=== PATIENT | male | born 1975 | race Caucasian/White ===

== ENCOUNTER 2016-07-15 12:58 | Emergency (ER) | payer MEDICAID ==
[~2016-07-15] VITALS: Ht 165.1 cm; Wt 72.0 kg
[2016-07-15 13:36] VITALS: Ht 165.1 cm; Wt 72.0 kg
--- NOTE | 2016-07-15 14:52 | ERD ---
ER Documentation Chief Complaint Date/Time DATE: 07/15/16 TIME: 14:50 Chief Complaint Pt here for suture removal from forehead LAC. HPI Patient is a 41-year-old male who presents to the ED for suture removal to his left forehead. He states that he has had the sutures in for 14 days. He denies any fever or chills. Denies any pain, bleeding or drainage at the site. He states that he is not on any medications right now. He denies any other symptoms. ROS All systems reviewed and are negative except as per history of present illness. PMhx/Soc History of Surgery: No Anesthesia Reaction: No Hx Neurological Disorder: No Hx Respiratory Disorders: No Hx Cardiac Disorders: No Hx Psychiatric Problems: No Hx Miscellaneous Medical Probl: No Hx Alcohol Use: No Hx Substance Use: No Hx Tobacco Use: No Smoking Status: Never smoker FmHx Family History: No coronary disease, No diabetes, No other Physical Exam Vitals Vital Signs Date Time Temp Pulse Resp B/P Pulse Ox O2 Delivery O2 Flow Rate FiO2 07/15/16 13:36 98.3 79 18 134/83 100 Physical Exam GENERAL: Well-developed, well-nourished male. Appears in no acute distress. HEAD: Normocephalic, atraumatic. 6 cm healing laceration to left side of forehead. no drainage, erythema, warmth or pain. no signs of infection. 8 sutures present. no tenderness. SKIN: Normal color. Warm and dry. No rashes or lesions. Capillary refill < 2 seconds Procedures/MDM ER COURSE: I kept the patient and/or family informed of laboratory and diagnostic imaging results throughout the emergency room course. Suture Removal by me: 8 sutures to left forehead Sutures removed with tweezers and scissors without incident. Wound shows no evidence of infection, foreign body, neurologic injury, vascular injury, open joint or tendon laceration. Patient to follow up PRN. MEDICAL DECISION MAKING: This is a 41-year-old male who presents with suture removal. Vital signs were reviewed. Patient is afebrile. Patient is not hypoxic. Patient is not toxic or ill-appearing. Suture removal was done without any complications. At this time , patient is stable for discharge and outpatient management with no new complaints during the ER course.Patient will be discharged home with instructions to recheck for new or worsening symptoms such as fever, nausea, weakness, LOC and to follow up with primary care in the next 1-2 days. Patient was advised to return to the ER for any new or worsening symptoms. Plan was discussed and patient and/or family understands and agrees. Home instructions were given. Departure Diagnosis: Primary Impression: Encounter for removal of sutures Patient Instructions: Suture Removal, No Complication Additional Instructions: Call your primary care doctor TOMORROW for an appointment during the next 1-2 days.See the doctor sooner or return here if your condition worsens before your appointment time. UCHE GUZMAN PA-C Jul 15, 2016 14:52
== END 2016-07-15 14:21 | disposition home or self-care (01) ==
LOC: E/R 12:58
DX: Z48.02 Encounter for removal of sutures (principal)
CPT/HCPCS: 99281